=== PATIENT | male | born 1950 ===

== ENCOUNTER 2018-01-26 08:36 | Outpatient (CLI) | payer OTHER | END 2018-01-26 15:11 | disposition home or self-care (01) | LOC: SONOGRAMA 08:36 | DX: R97.20 Elevated prostate specific antigen [PSA] (principal) ==

== ENCOUNTER 2018-01-28 11:17 | Outpatient (CLI) | payer OTHER | END 2018-01-28 11:19 | disposition home or self-care (01) | LOC: NUCLEAR 11:17 | DX: M81.0 Age-related osteoporosis without current pathological fracture (principal) ==

== ENCOUNTER 2019-05-13 12:28 | Outpatient (CLI) | payer OTHER | END 2019-05-13 12:42 | disposition home or self-care (01) | LOC: RAD 12:28 | DX: I10 Essential (primary) hypertension (principal) ==

== ENCOUNTER 2020-04-18 13:48 | Outpatient (CLI) | payer OTHER | END 2020-04-18 14:00 | disposition home or self-care (01) | LOC: NUCLEAR 13:48 | PROVIDERS: ATTEND Internal Medicine | DX: M81.0 Age-related osteoporosis without current pathological fracture (principal) ==